=== PATIENT | female | born 1960 | race African-American/Black ===

== ENCOUNTER 2016-07-16 20:36 | Emergency (ER) | payer BC ==
--- NOTE | 2016-07-16 21:16 | ER Document Report ---
ED Medical Screen (RME) - General Chief Complaint: Chest Pain Stated Complaint: CHEST PAIN Time seen by provider: 21:13 Mode of Arrival: Wheelchair Information source: Patient Notes: 56 yo female presents to ed for chest tightness that started yesterday and got worse today. HX of mi in 2010 TRAVEL OUTSIDE OF THE [place] IN LAST 30 DAYS: No - HPI Onset: Yesterday Onset/Duration: Intermittent Quality of pain: Pressure, Sharp Severity: Severe Pain Level: 5 Associated Symptoms: Chest pain - left arm feels tired, Other - fatique Exacerbated by: Denies Relieved by: Denies Similar symptoms previously: Yes Recently seen / treated by doctor: No - Related Data Smoking: Non-smoker, Quit greater than 1 year Frequency of alcohol use: None Drug Abuse: None Allergies/Adverse Reactions: Penicillins Allergy (Unknown, Verified 07/16/16 21:04) Past Medical History - Social History Chew tobacco use (# tins/day): No Frequency of alcohol use: None Drug Abuse: None - Past Medical History Cardiac Medical History: Reports: Hx Coronary Artery Disease, Hx Heart Attack - 09/19/10, Hx Hypercholesterolemia, Hx Hypertension Pulmonary Medical History: Reports: Hx Asthma, Hx Bronchitis Psychiatric Medical History: Reports: Hx Depression Past Surgical History: Reports: Hx Cardiac Catheterization - stent x2, Hx Coronary Stent. Denies: Hx Pacemaker - Immunizations Immunizations up to date: Yes Hx Diphtheria, Pertussis, Tetanus Vaccination: Yes Physical Exam - Vital signs Vitals: Temp Pulse Resp BP Pulse Ox 97.9 F 64 20 121/74 95 07/16/16 20:49 07/16/16 20:49 07/16/16 20:49 07/16/16 20:49 07/16/16 20:49 Course - Vital Signs Vital signs: Temp Pulse Resp BP Pulse Ox 97.9 F 64 20 121/74 95 07/16/16 20:49 07/16/16 20:49 07/16/16 20:49 07/16/16 20:49 07/16/16 20:49
[2016-07-16] MEDS ORDERED: ASPIRIN 81 MG TABLET, CHEWABLE PO ONE (21:17)
[2016-07-16 22:12] LABS: ABSOLUTE BASOPHILS # (AUTO) 0.1 10^3/uL (0.0-0.2); ABSOLUTE EOSINOPHILS # (AUTO) 0.2 10^3/uL (0.0-0.6); ABSOLUTE LYMPHOCYTES (AUTO) 3.5 10^3/uL (0.5-4.7); ABSOLUTE MONOCYTES (AUTO) 0.8 10^3/uL (0.1-1.4); ABSOLUTE NEUT (AUTO) 3.4 10^3/uL (1.7-8.2); BASOPHILS % (AUTO) 1.1 % (0-2); EOSINOPHILS % (AUTO) 2.6 % (0-6); HEMATOCRIT 38.8 % (36.0-47.0); HGB HCT DIFFERENCE 0.2; LYMPHOCYTES % (AUTO) 44.3 % (13-45); MEAN CORPUSCULAR HEMOGLOBIN 29.9 pg (27.0-33.4); MEAN CORPUSCULAR HGB CONC 33.5 g/dL (32.0-36.0); MEAN CORPUSCULAR VOLUME 89 fl (80-97); MONOCYTES % (AUTO) 9.5 % (3-13); RED BLOOD COUNT 4.35 10^6/uL (3.72-5.28); RED CELL DISTRIBUTION WIDTH 13.4 % (11.5-14.0); SEGMENTED NEUTROPHILS % (AUTO) 42.5 % (42-78); WHITE BLOOD COUNT 7.9 10^3/uL (4.0-10.5)
[2016-07-16 22:33] LABS: ALANINE AMINOTRANSFERASE 46 U/L (9-52); ALBUMIN 3.7 g/dL (3.5-5.0); ALKALINE PHOSPHATASE 82 U/L (38-126); ANION GAP 12 (5-19); ASPARTATE AMINO TRANSFERASE 26 U/L (14-36); BILIRUBIN,TOTAL 0.8 mg/dL (0.2-1.3); BLOOD UREA NITROGEN 16 mg/dL (7-20); CALCIUM 9.5 mg/dL (8.4-10.2); CARBON DIOXIDE 24 mmol/L (22-30); CHLORIDE 106 mmol/L (98-107); CREATINE KINASE 95 U/L (30-135); CREATININE RESULT 1.03 mg/dL (0.52-1.25); GLUCOSE 138 mg/dL (75-110); LIPASE 40.9 U/L (23-300); MAGNESIUM 1.7 mg/dL (1.6-2.3); POTASSIUM 4.1 mmol/L (3.6-5.0); SODIUM 141.9 mmol/L (137-145); TOTAL PROTEIN 7.1 g/dL (6.3-8.2)
[2016-07-16 23:15] LABS: CREATINE KINASE MB 0.24 ng/mL (<4.55)
[2016-07-16 23:16] LABS: TROPONIN I < 0.012 ng/mL
[2016-07-17] MEDS ORDERED: ASPIRIN 81 MG TABLET, CHEWABLE ONE (01:15)
[2016-07-17] MEDS ORDERED: ASPIRIN 81 MG TABLET, CHEWABLE PO ONE (01:30)
--- NOTE | 2016-07-17 01:41 | ER Document Report ---
ED General - General Chief Complaint: Chest Pain Stated Complaint: CHEST PAIN Mode of Arrival: Wheelchair Notes: Patient is a 56-year-old female who presents with 2 days of continuous central chest pressure. Pain Is described as a dull, aching pain. Nothing improves or worsens the pain. She denies any associated shortness of breath, nausea, vomiting or diaphoresis. No radiation of the pain. States this does not feel the same as her prior [place] and at that time she had associated vomiting and diaphoresis. She has not spoken to her primary care physician regarding today' s concerns. No history of DVT or pulmonary embolus. TRAVEL OUTSIDE OF THE [place] IN LAST 30 DAYS: No - Related Data Allergies/Adverse Reactions: Penicillins Allergy (Unknown, Verified 07/16/16 21:04) Past Medical History - General Information source: Patient - Social History Smoking Status: Never Smoker Chew tobacco use (# tins/day): No Frequency of alcohol use: None Drug Abuse: None Lives with: Spouse/Significant other Family History: Reviewed & Not Pertinent, Hypertension Patient has suicidal ideation: No Patient has homicidal ideation: No - Past Medical History Cardiac Medical History: Reports: Hx Coronary Artery Disease, Hx Heart Attack - 09/19/10, Hx Hypercholesterolemia, Hx Hypertension Pulmonary Medical History: Reports: Hx Asthma, Hx Bronchitis Psychiatric Medical History: Reports: Hx Depression Past Surgical History: Reports: Hx Cardiac Catheterization - stent x2, Hx Coronary Stent. Denies: Hx Pacemaker - Immunizations Immunizations up to date: Yes Hx Diphtheria, Pertussis, Tetanus Vaccination: Yes Review of Systems - Review of Systems Notes: Constitutional: Negative for fever. HENT: Negative for sore throat. Eyes: Negative for visual changes. Cardiovascular: Positive for chest pain. Respiratory: Negative for shortness of breath. Gastrointestinal: Negative for abdominal pain, vomiting or diarrhea. Genitourinary: Negative for dysuria. Musculoskeletal: Negative for back pain. Skin: Negative for rash. Neurological: Negative for headaches, weakness or numbness. 10 point ROS negative except as marked above and in HPI. Physical Exam - Vital signs Vitals: Temp Pulse Resp BP Pulse Ox 97.9 F 64 20 121/74 95 07/16/16 20:49 07/16/16 20:49 07/16/16 20:49 07/16/16 20:49 07/16/16 20:49 Interpretation: Normal Notes: PHYSICAL EXAMINATION: GENERAL: Morbidly obese. Well-appearing, well-nourished and in no acute distress. HEAD: Atraumatic, normocephalic. EYES: Pupils equal round and reactive to light, extraocular movements intact, sclera anicteric, conjunctiva are normal. ENT: nares patent, oropharynx clear without exudates. Moist mucous membranes. NECK: Normal range of motion, supple without lymphadenopathy LUNGS: Breath sounds clear to auscultation bilaterally and equal. No wheezes rales or rhonchi. HEART: Regular rate and rhythm without murmurs ABDOMEN: Obese abdomen. Soft, nontender, normoactive bowel sounds. No guarding , no rebound. No masses appreciated. EXTREMITIES: Normal range of motion, trace edema in the bilateral lower extremities is equal and symmetric. No cyanosis. NEUROLOGICAL: No focal neurological deficits. Moves all extremities spontaneously and on command. PSYCH: Normal mood, normal affect. SKIN: Warm, Dry, normal turgor, no rashes or lesions noted. Course - Re-evaluation Re-evalutation: 07/17/16 0100 Presentation of chest pain in an otherwise well appearing patient. Low clinical suspicion for ACS given clinical history, exam, EKG without ST elevations or depressions, and negative initial troponin. HEART score less than or equal to 3. PE also seems unlikely given clinical history, absence of tachycardia or dyspnea. Wells score is 0 CXR without evidence of pneumothorax or pneumonia. No widened mediastinum. Aortic dissection also seems unlikely given history, symmetric pulses, CXR, and vitals. Patient does have some mild bilateral lower extremity edema and some of her discomfort may be related to a mild amount of fluid retention. She has been started on Lasix 20 mg daily. HEART Score: History:0 EC Age:1 Risk Factors:2 Troponin:0 Total: 3 0200- second troponin remains negative. Final assessment: Chest pain in a patient without evidence of cardiac or other serious etiology on workup today. I discussed with patient that, based on their age, risk factors and emergency department testing today, the likelihood that their symptoms are related to a heart attack is very low (estimated risk of heart attack or over the next 30 days of less than 1%). The patient demonstrates decision making capacity and has verbalized an understanding of these risks to me. Based on this, the patient has chosen to follow-up as an outpatient. Usual chest pain return precautions reviewed. The patient states understanding and agreement with this plan. - Vital Signs Vital signs: Temp Pulse Resp BP Pulse Ox 97.9 F 64 15 136/77 H 97 07/16/16 20:49 07/16/16 20:49 07/17/16 01:02 07/17/16 01:02 07/17/16 01:02 - Laboratory Result Diagrams: 07/16/16 21:45 07/16/16 21:45 Laboratory results interpreted by me: 07/16/16 21:45 Est GFR (Non-Af Amer) 56 L Glucose 138 H - Diagnostic Test Radiology reviewed: Image reviewed, Reports reviewed Radiology results interpreted by me: 07/17/16 04:25 Chest x-ray: No acute infiltrate or pulmonary edema. - EKG Interpretation by Me Additional EKG results interpreted by me: 07/17/16 04:26 Normal sinus rhythm. Rate 65. No ST elevations or depressions. QTC is 423. Discharge - Discharge Clinical Impression: Bilateral lower extremity edema Chest pain Qualifiers: Chest pain type: unspecified Qualified Code(s): R07.9 - Chest pain, unspecified Condition: Good Disposition: HOME, SELF-CARE Additional Instructions: You were seen today for chest pain. The exact cause of your pain is unclear. However, based on your cardiac enzyme testing, chest x-ray, and EKG it does not appear that it is from an immediately life-threatening cause at this time. Although your testing here is normal is critical that you follow-up with your primary care physician for continued evaluation of this chest pain and possible stress testing. I recommended you see your physician within the next 24-48 hours to be evaluated for consideration of a stress test. Please return to emergency department immediately if you have worsening of your chest pain, shortness of breath, vomiting, become unable to exert yourself due to pain or difficulty breathing, you pass out, or have any pain that radiates into your arms, jaw, or back. Please also return if you have any additional symptoms that are concerning to you. For the swelling in her legs: You've been started on a low-dose of Lasix and should continue until you see your primary care doctor. Prescriptions: Furosemide [Lasix 20 mg Tablet] 20 mg PO QAM #20 tablet Tramadol HCl 50 mg PO BID PRN #20 tablet PRN Reason: Referrals: [Primary Care Provider] - Follow up in 3-5 days
[2016-07-17 01:44] VITALS: BP 136/77
--- NOTE | 2016-07-17 05:12 | EKG REPORT ---
SEVERITY:- BORDERLINE ECG - SINUS RHYTHM BORDERLINE T ABNORMALITIES, ANTERIOR LEADS : Confirmed by: Alyse Thompson 17-Jul-2016 05:11:16
== END 2016-07-17 02:14 | disposition home or self-care (01) ==
LOC: ER 20:36
DX: R60.9 Edema, unspecified (principal); R07.9 Chest pain, unspecified; I25.10 Atherosclerotic heart disease of native coronary artery without angina pectoris; I10 Essential (primary) hypertension; E78.00 Pure hypercholesterolemia, unspecified; J45.909 Unspecified asthma, uncomplicated; I25.2 Old myocardial infarction; Z88.0 Allergy status to penicillin
CPT/HCPCS: 36415; 71020; 80053; 82550; 82553; 83690; 83735; 84484; 84703; 85025; 93005; 93010; 99285

== ENCOUNTER 2016-08-28 20:42 | Emergency (ER) | payer BC ==
--- NOTE | 2016-08-28 22:07 | ER Document Report ---
ED Medical Screen (RME) - General Chief Complaint: Medication Refill Stated Complaint: BLOOD PRESSURE PROBLEM Mode of Arrival: Ambulatory Information source: Patient Notes: 56 y/o F presents to ED requesting medication refill of Tramadol and Lasix. States was prescribed medication in ED last month but has not been able to follow-up with pcp. I have greeted and performed a rapid initial assessment of this patient. A comprehensive ED assessment and evaluation of the patient, analysis of test results and completion of the medical decision making process will be conducted by additional ED providers. TRAVEL OUTSIDE OF THE [place] IN LAST 30 DAYS: No - Related Data Allergies/Adverse Reactions: Penicillins Allergy (Unknown, Verified 07/16/16 21:04) Past Medical History - Past Medical History Cardiac Medical History: Reports: Hx Coronary Artery Disease, Hx Heart Attack - 09/19/10, Hx Hypercholesterolemia, Hx Hypertension Pulmonary Medical History: Reports: Hx Asthma, Hx Bronchitis Endocrine Medical History: Reports: Hx Diabetes Mellitus Type 2 Psychiatric Medical History: Reports: Hx Depression Past Surgical History: Reports: Hx Cardiac Catheterization - stent x2, Hx Coronary Stent. Denies: Hx Pacemaker - Immunizations Immunizations up to date: Yes Hx Diphtheria, Pertussis, Tetanus Vaccination: Yes Physical Exam - Vital signs Vitals: Temp Pulse Resp BP Pulse Ox 97.9 F 71 20 119/70 95 08/28/16 21:33 08/28/16 21:33 08/28/16 21:33 08/28/16 21:33 08/28/16 21:33 - General General appearance: Appears well, Alert In distress: None - Respiratory Respiratory status: No respiratory distress Course - Vital Signs Vital signs: Temp Pulse Resp BP Pulse Ox 97.9 F 71 20 119/70 95 08/28/16 21:33 08/28/16 21:33 08/28/16 21:33 08/28/16 21:33 08/28/16 21:33
--- NOTE | 2016-08-29 01:45 | ER Document Report ---
HPI - HPI Onset: Other - Chronic Onset/Duration: Intermittent Quality of pain: Sharp Pain Level: 3 Context: Patient states she has blood pressure problems and she needs a refill on her portable pill until she can follow-up with [facility] on [facility]. She states she's been taken 20 mg of Lasix daily. She states she also needs some tramadol until she can follow-up as she is out of those. She states she has pain from neuropathy and from the swelling to her hands and feet. Associated Symptoms: Other - Swelling to hands and feet and pain in hands and feet Exacerbated by: Movement, Walking Relieved by: Denies Similar symptoms previously: Yes Recently seen / treated by doctor: Yes - ROS ROS below otherwise negative: Yes - CONSTITUTIONAL Constitutional: DENIES: Fever, Chills - EENT EENT: DENIES: Sore Throat, Ear Pain, Nasal Drainage-Clear, Nasal Drainage- Purulent, Congestion, Eye problems - NEURO Neurology: DENIES: Headache, Weakness, Vision blurred, Dizzinesss / Vertigo - CARDIOVASCULAR Cardiovascular: DENIES: Chest pain - RESPIRATORY Respiratory: DENIES: Trouble Breathing, Coughing - GASTROINTESTINAL Gastrointestinal: DENIES: Abdominal Pain, Nausea, Patient vomiting, Diarrhea, Constipation, Black / Bloody Stools - URINARY Urinary: DENIES: Dysuria, Urgency, Frequency - REPRODUCTIVE Reproductive: DENIES: :, Postmenopausal, Abnormal bleeding / discharge - MUSCULOSKELETAL Musculoskeletal: REPORTS: Extremity pain, Swelling. DENIES: Back Pain, Neck Pain - DERM Skin Color: Normal Skin Problems: None - NURSING COMMENTS Comment: 56 yr old female here for JESS leg swelling. Pt has hx of CHF, pt prescribed Lasix here as well as tramdol. Pt states she needs a refill. Pt denies pain. Pt allergic to PCN. HX HTN, CHF and diabetes Past Medical History - General Information source: Patient - Social History Smoking Status: Never Smoker Cigarette use (# per day): No Chew tobacco use (# tins/day): No Smoking Education Provided: No Frequency of alcohol use: None Drug Abuse: None Occupation: none Family History: Arthritis, CAD, COPD, CVA, DM, Hyperlipidemia, Hypertension, Malignancy Patient has suicidal ideation: No Patient has homicidal ideation: No - Past Medical History Cardiac Medical History: Reports: Hx Coronary Artery Disease, Hx Heart Attack - 09/19/10, Hx Hypercholesterolemia, Hx Hypertension Pulmonary Medical History: Reports: Hx Asthma, Hx Bronchitis EENT Medical History: Reports: None Neurological Medical History: Reports: None Endocrine Medical History: Reports: Hx Diabetes Mellitus Type 2 Renal/ Medical History: Reports: None Malignancy Medical History: Reports: None GI Medical History: Reports: None Musculoskeltal Medical History: Reports None Skin Medical History: Reports Hx Cellulitis Psychiatric Medical History: Reports: Hx Depression Traumatic Medical History: Reports: None Infectious Medical History: Reports: None Past Surgical History: Reports: Hx Cardiac Catheterization - stent x2, Hx Coronary Stent, Hx Gynecologic Surgery - Exploratory laparoscopy for pain, Other - Lymph nodes removed from left and right arm as well as sweat glands. Denies: Hx Pacemaker - Immunizations Immunizations up to date: Yes Hx Diphtheria, Pertussis, Tetanus Vaccination: Yes Vertical Provider Document - CONSTITUTIONAL Agree With Documented VS: Yes General Appearance: WD/WN, No Apparent Distress - INFECTION CONTROL TRAVEL OUTSIDE OF THE [place] IN LAST 30 DAYS: No - HEENT HEENT: Atraumatic, Normal ENT Exam, Normocephalic, PERRLA - NECK Neck: Normal Inspection, Supple, Thyroid Normal - RESPIRATORY Respiratory: Breath Sounds Normal, No Respiratory Distress, Chest Non-Tender O2 Sat by Pulse Oximetry: 93 - CARDIOVASCULAR Cardiovascular: Regular Rate, Regular Rhythm, No Murmur - BACK Back: Normal Inspection, Abnormal Inspection - MUSCULOSKELETAL/EXTREMETIES Musculoskeletal/Extremeties: Tender, Edema - Bilateral feet and hands - NEURO Level of Consciousness: Awake Motor/Sensory: No Motor Deficit, No Sensory Deficit - DERM Integumentary: Warm, Dry, No Rash Course - Re-evaluation Re-evalutation: 08/29/16 01:45 We'll write prescription for 7 of the tramadol and 10 mg Lasix daily to last until her follow-up appointment with [facility] on 09/21/2016. - Vital Signs Vital signs: Temp Pulse Resp BP Pulse Ox 97.9 F 71 20 119/70 93 08/28/16 22:03 08/28/16 22:03 08/28/16 22:03 08/28/16 22:03 08/28/16 22:03 Discharge - Discharge Clinical Impression: Peripheral edema Hand and foot pain Qualifiers: Laterality: unspecified laterality Qualified Code(s): M79.643 - Pain in unspecified hand Disposition: HOME, SELF-CARE Additional Instructions: Edema, Peripheral You have swelling in your legs. This is called peripheral edema. It can be caused by "leaky capillaries," inflammation, disease of the leg veins, or excess salt and water in your body. Edema may be a sign of heart, kidney, or liver disease. A medical evaluation can determine if there is a serious underlying cause for your edema. Avoid prolonged standing. If you must sit for a long time, occasionally get up and walk around or elevate your legs. Support stockings can be helpful in limiting swelling. Often diuretic or water pills are used to remove excess salt and water from your body. Call the doctor or return if you develop increased swelling, pain, or redness, shortness of breath, chest pain, or any other significant change. Ultram Ultram is an excellent drug for pain relief. It is not a narcotic, but it works in a similar way. Ultram can take up to two hours for full effect. Although not addicting, Ultram is best avoided in patients with a history of drug abuse. Ultram should not be used with alcohol, sleeping pills, or narcotics. If you're prone to seizures, Ultram can make you more likely to have a seizure. Ultram can be hazardous when combined with MAO-inhibitor antidepressants (such as Nardil or Parnate). Be sure your doctor is aware of all medicines you are taking. Persons with severe liver or kidney disease should increase the time between doses of Ultram. Discuss this with your doctor if you're uncertain. Side effects of Ultram can include dizziness, nausea, constipation, sleepiness, and itching. (These side effects are also seen with narcotic pain medicines.) Please call your doctor if you have other disturbing effects. FOLLOW-UP CARE: If you have been referred to a physician for follow-up care, call the physician s office for an appointment as you were instructed or within the next two days. If you experience worsening or a significant change in your symptoms, notify the physician immediately or return to the Emergency Department at any time for re-evaluation. Be sure to keep your follow-up appointment on 09/21/2016 Prescriptions: Furosemide 10 mg PO DAILY #15 tablet Tramadol HCl [Ultram 50 mg Tablet] 50 mg PO BIDP PRN #10 tablet PRN Reason: Referrals: [facility] [Primary Care Provider] - Follow up as needed
[2016-08-29 02:00] VITALS: BP 130/88
== END 2016-08-29 01:54 | disposition home or self-care (01) ==
LOC: ER 20:42
DX: Z76.0 Encounter for issue of repeat prescription (principal); E11.40 Type 2 diabetes mellitus with diabetic neuropathy, unspecified; I11.0 Hypertensive heart disease with heart failure; I50.9 Heart failure, unspecified; R60.9 Edema, unspecified; I25.10 Atherosclerotic heart disease of native coronary artery without angina pectoris; I25.2 Old myocardial infarction; J45.909 Unspecified asthma, uncomplicated; Z79.899 Other long term (current) drug therapy; Z88.0 Allergy status to penicillin; Z98.61 Coronary angioplasty status
CPT/HCPCS: 99283

== ENCOUNTER 2017-01-17 14:58 | Emergency (ER) | payer BC, MEDICAID ==
[2017-01-17] MEDS ORDERED: METHYLPREDNISOLONE INJ 125 MG/2 ML SDV IV ONE (16:10)
[2017-01-17] MEDS ORDERED: DIPHENHYDRAMINE HCL 50 MG/ML VIAL IV ONE (16:10)
[2017-01-17] MEDS ORDERED: FAMOTIDINE INJ/PF 20 MG/2 ML SDV IV ONE (16:10)
--- NOTE | 2017-01-17 16:12 | ER Document Report ---
HPI - HPI Patient complains to provider of: allergic reaction Onset: Just prior to arrival Onset/Duration: Sudden Quality of pain: Achy Pain Level: 4 Context: Patient states that she ate at [employer] lunchtime today and had several bites of her sandwich before she realized that there had been onions on the burger. Patient states that her voice became hoarse and she noticed a rash to her extremities. Patient states she has had allergic reaction to onions in the past. Patient states initially she felt like her throat was starting to become irritated although she states that her throat started to feel better now. Additionally complains of left lower back pain that started after she ate a hamburger as well and is concerned that her allergic reaction is causing left lower back pain. Patient denies any injury to her back. Patient denies any urinary symptoms. Associated Symptoms: Other - voice hoarseness, skin rash, left lower back pain. denies: Chest pain, Nonproductive cough, Productive cough, Fever, Shortness of breath Exacerbated by: Denies Relieved by: Denies Similar symptoms previously: Yes Recently seen / treated by doctor: No - ROS ROS below otherwise negative: Yes Systems Reviewed and Negative: Yes All other systems reviewed and negative - CONSTITUTIONAL Constitutional: DENIES: Fever - EENT EENT: DENIES: Sore Throat Notes: voice hoarseness - RESPIRATORY Respiratory: DENIES: Trouble Breathing, Coughing - GASTROINTESTINAL Gastrointestinal: DENIES: Nausea, Patient vomiting - URINARY Urinary: DENIES: Dysuria, Urgency, Frequency - REPRODUCTIVE Reproductive: DENIES: : - MUSCULOSKELETAL Musculoskeletal: REPORTS: Back Pain - DERM Skin Color: Normal Skin Problems: Rash Past Medical History - General Information source: Patient - Social History Smoking Status: Never Smoker Frequency of alcohol use: None Drug Abuse: None Occupation: [employer] Family History: Arthritis, CAD, COPD, CVA, DM, Hyperlipidemia, Hypertension, Malignancy Patient has suicidal ideation: No Patient has homicidal ideation: No - Past Medical History Cardiac Medical History: Reports: Hx Congestive Heart Failure, Hx Coronary Artery Disease, Hx Heart Attack - 09/19/10, Hx Hypercholesterolemia, Hx Hypertension Pulmonary Medical History: Reports: Hx Asthma, Hx Bronchitis Endocrine Medical History: Reports: Hx Diabetes Mellitus Type 2 Renal/ Medical History: Denies: Hx Peritoneal Dialysis Skin Medical History: Reports Hx Cellulitis Psychiatric Medical History: Reports: Hx Depression Past Surgical History: Reports: Hx Cardiac Catheterization - stent x2, Hx Coronary Stent, Hx Gynecologic Surgery - Exploratory laparoscopy for pain, Other - Lymph nodes removed from left and right arm as well as sweat glands. Denies: Hx Pacemaker - Immunizations Immunizations up to date: Yes Hx Diphtheria, Pertussis, Tetanus Vaccination: Yes Vertical Provider Document - CONSTITUTIONAL Agree With Documented VS: Yes Exam Limitations: No Limitations General Appearance: WD/WN, No Apparent Distress - INFECTION CONTROL TRAVEL OUTSIDE OF THE [place] IN LAST 30 DAYS: No - HEENT HEENT: Atraumatic, Normocephalic. negative: Pharyngeal Exudate, Pharyngeal Tenderness, Pharyngeal Erythema, Tympanic Membrane Red, Tympanic Membrane Bulging Notes: voice hoarseness, no angioedema, no potential airway compromise - NECK Neck: Normal Inspection, Supple. negative: Lymphadenopathy-Left, Lymphadenopathy-Right - RESPIRATORY Respiratory: Breath Sounds Normal, No Respiratory Distress, Chest Non-Tender O2 Sat by Pulse Oximetry: 94 - CARDIOVASCULAR Cardiovascular: Regular Rate, Regular Rhythm, No Murmur - GI/ABDOMEN Gastrointestinal: Abdomen Soft - BACK Back: negative: CVA Tenderness-Right, CVA Tenderness-Left Notes: left lower lumbar paraspinal tenderness - MUSCULOSKELETAL/EXTREMETIES Musculoskeletal/Extremeties: MAEW, FROM - NEURO Level of Consciousness: Awake, Alert, Appropriate Motor/Sensory: No Motor Deficit - DERM Integumentary: Warm, Dry, Rash - a few scattered erythematous macular lesions to bilateral extremities Course - Re-evaluation Re-evalutation: 01/17/17 17:53 Breath sounds clear bilaterally, no angioedema, no visible rash to extremities. Patient denies any symptoms at this time. Discussed worsening signs or symptoms that patient should return immediately for. Patient verbalized understanding and agrees with plan of care - Vital Signs Vital signs: Temp Pulse Resp BP Pulse Ox 97.4 F 61 22 H 121/67 94 01/17/17 15:26 01/17/17 15:26 01/17/17 15:26 01/17/17 15:26 01/17/17 15:26 Discharge - Discharge Clinical Impression: Allergic reaction Qualifiers: Encounter type: initial encounter Qualified Code(s): T78.40XA - Allergy, unspecified, initial encounter Condition: Stable Disposition: HOME, SELF-CARE Instructions: Acute Allergic Reaction ([facility]), Use of Diphenhydramine, Steroid Medication Additional Instructions: Return immediately for any new or worsening symptoms Followup with your primary care provider, call tomorrow to make a followup appointment Prescriptions: Famotidine [Pepcid 20 mg Tablet] 20 mg PO BID #12 tablet Prednisone [Deltasone 20 mg Tablet] 3 tab PO DAILY 4 Days Forms: Return to Work Referrals: SAVANNA ADAMS MD [NO LOCAL MD] - Follow up as needed
[2017-01-17 17:16] LABS: APPEARANCE,URINE CLEAR; BILIRUBIN,URINE NEGATIVE (NEGATIVE); GLUCOSE, URINE NEGATIVE (NEGATIVE); KETONES,URINE NEGATIVE (NEGATIVE); LEUKOCYTE ESTERASE,URINE SMALL (NEGATIVE); NITRITE,URINE NEGATIVE (NEGATIVE); PROTEIN,URINE NEGATIVE (NEGATIVE); URINE SPECIFIC GRAVITY 1.008; UROBILINOGEN,URINE NEGATIVE mg/dL (<2.0)
[2017-01-17 18:29] VITALS: BP 132/79
== END 2017-01-17 18:28 | disposition home or self-care (01) ==
LOC: ER 14:58
DX: T78.1XXA Other adverse food reactions, not elsewhere classified, initial encounter (principal); R49.0 Dysphonia; L27.2 Dermatitis due to ingested food; X58.XXXA Exposure to other specified factors, initial encounter; M54.5 Low back pain; I25.10 Atherosclerotic heart disease of native coronary artery without angina pectoris; I25.2 Old myocardial infarction; I10 Essential (primary) hypertension; E11.9 Type 2 diabetes mellitus without complications; J45.909 Unspecified asthma, uncomplicated; Z98.61 Coronary angioplasty status
CPT/HCPCS: 99283; 96374; 96375; 87086; 81001; J1200; J2930; S0028

== ENCOUNTER → 2018-05-03 | Outpatient (CLI) | payer MEDICAID ==
--- NOTE | 2018-05-04 14:35 | WOMENS IMAGING REPORT ---
EXAM DESCRIPTION: BILAT SCREENING MAMMO W/CAD COMPLETED DATE/TIME: 05/03/2018 2:55 pm REASON FOR STUDY: SCREENING MAMMO Z12.31 ENCNTR SCREEN MAMMOGRAM FOR MALIGNANT NEOPLASM OF LOW COMPARISON: 2013 TECHNIQUE: Standard craniocaudal and mediolateral oblique views of each breast recorded using digita l acquisition. LIMITATIONS: None. FINDINGS: No masses, calcifications or architectural distortion. No areas of suspicion. Read with the assistance of CAD. .[facility] - R2 Cenova Version 1.3 .[facility] Imaging - R2 Cenova Version 1.3 .[facility] - R2 Cenova Version 2.4 .[facility] [place] Cenova Version 2.4 .[facility] - R2 Database Tester Version 9.2 IMPRESSION: NORMAL MAMMOGRAM. BIRADS 1. BREAST DENSITY: b. There are scattered areas of fibroglandular density. BIRAD: 1 NEGATIVE RECOMMENDATION: ROUTINE SCREENING COMMENT: The patient has been notified of the results by letter per SA requirements. Additional no tification policies are in place for contacting patient with suspicious or incomplete findings. Quality ID #[id number]: The [employer] recommends an annual screening mammogram for women aged 40 years or over. This facility utilizes a reminder system to ensure that all patients receive reminder letters, and/or direct phone calls for appointments. This includes reminders for routine scr eening mammograms, diagnostic mammograms, or other Breast Imaging Interventions when appropriate. Th is patient will be placed in the appropriate reminder system. The [employer] ([employer]) has developed recommendations for screening MRI of the breast s in certain patient populations, to be used in conjunction with mammography. Breast MRI surveillanc e may be appropriate for women with more than 20% lifetime risk of developing breast cancer as deter mined by genetic testing, significant family history of the disease, or history of mantle radiation f or Hodgkins Disease. [employer] Practice Guidelines 2008. TECHNICAL DOCUMENTATION: FINDING NUMBER: (1) ASSESSMENT: (1) JOB ID: [id number] [employer]- All Rights Reserved Reading location - IP/workstation name: [email or web address]
== END ==
LOC: WI 14:27
PROVIDERS: ATTEND Internal Medicine
DX: Z12.31 Encounter for screening mammogram for malignant neoplasm of breast (principal)
CPT/HCPCS: 77067

== ENCOUNTER 2018-06-10 13:25 | Emergency (ER) | payer MEDICAID ==
[2018-06-10] MEDS ORDERED: ASPIRIN 81 MG TABLET, CHEWABLE PO ONE (14:35)
[2018-06-10] MEDS ORDERED: NITROGLYCERIN 2% OINTMENT 1 GM PACKET TP ONE (14:36)
--- NOTE | 2018-06-10 14:36 | ER Document Report ---
ED Medical Screen (RME) - General Chief Complaint: Chest Pain Stated Complaint: SHORTNESS OF BREATH,CHEST PAIN Time Seen by Provider: 06/10/18 14:34 Notes: 58 years old female with a history of [place] in 2014 followed by 3 stent placement presents today with chest pain which was similar to the one that she had in 2014. Pointing towards the mid sternum to lower sternum area and spreading bilaterally since this morning. Associated with difficulty in breathing. Nauseous no vomiting. Denies any left arm numbness tingling sensation. Denies any fever chills cough or other constitutional symptoms. TRAVEL OUTSIDE OF THE [place] IN LAST 30 DAYS: No - Related Data Allergies/Adverse Reactions: Penicillins Allergy (Unknown, Verified 06/10/18 13:25) Past Medical History - Social History Chew tobacco use (# tins/day): No Frequency of alcohol use: None Drug Abuse: None - Past Medical History Cardiac Medical History: Reports: Hx Congestive Heart Failure, Hx Coronary Artery Disease, Hx Heart Attack - 09/19/10, Hx Hypercholesterolemia, Hx Hypertension Pulmonary Medical History: Reports: Hx Asthma, Hx Bronchitis Endocrine Medical History: Reports: Hx Diabetes Mellitus Type 2 Renal/ Medical History: Denies: Hx Peritoneal Dialysis Skin Medical History: Reports Hx Cellulitis Psychiatric Medical History: Reports: Hx Depression Past Surgical History: Reports: Hx Cardiac Catheterization - stent x2, Hx Coronary Stent, Hx Gynecologic Surgery - Exploratory laparoscopy for pain, Other - Lymph nodes removed from left and right arm as well as sweat glands. Denies: Hx Pacemaker - Immunizations Immunizations up to date: Yes Hx Diphtheria, Pertussis, Tetanus Vaccination: Yes Physical Exam - Vital signs Vitals: Temp Pulse Resp BP Pulse Ox 97.4 F 81 20 108/67 99 06/10/18 13:33 06/10/18 13:33 06/10/18 13:33 06/10/18 13:33 06/10/18 13:33 Course - Vital Signs Vital signs: Temp Pulse Resp BP Pulse Ox 97.4 F 81 20 108/67 99 06/10/18 13:33 06/10/18 13:33 06/10/18 13:33 06/10/18 13:33 06/10/18 13:33 Doctor's Discharge - Discharge Referrals: KIKA AGUILAR MD [Primary Care Provider] - Follow up as needed
[2018-06-10 15:15] LABS: ABSOLUTE BASOPHILS # (AUTO) 0.1 10^3/uL (0.0-0.2); ABSOLUTE EOSINOPHILS # (AUTO) 0.1 10^3/uL (0.0-0.6); ABSOLUTE LYMPHOCYTES (AUTO) 4.9 10^3/uL (0.5-4.7); ABSOLUTE MONOCYTES (AUTO) 1.1 10^3/uL (0.1-1.4); ABSOLUTE NEUT (AUTO) 5.2 10^3/uL (1.7-8.2); BASOPHILS % (AUTO) 1.2 % (0-2); HEMATOCRIT 44.1 % (36.0-47.0); HEMOGLOBIN 15.1 g/dL (12.0-15.5); LYMPHOCYTES % (AUTO) 42.7 % (13-45); MEAN CORPUSCULAR HEMOGLOBIN 31.8 pg (27.0-33.4); MEAN CORPUSCULAR HGB CONC 34.3 g/dL (32.0-36.0); MEAN CORPUSCULAR VOLUME 93 fl (80-97); MONOCYTES % (AUTO) 9.7 % (3-13); PLATELET COUNT 407 10^3/uL (150-450); RED BLOOD COUNT 4.76 10^6/uL (3.72-5.28); RED CELL DISTRIBUTION WIDTH 14.3 % (11.5-14.0); SEGMENTED NEUTROPHILS % (AUTO) 45.4 % (42-78); TOTAL CELLS COUNTED % (AUTO) 100 %; WHITE BLOOD COUNT 11.4 10^3/uL (4.0-10.5)
[2018-06-10 15:36] LABS: ALANINE AMINOTRANSFERASE 28 U/L (9-52); ALBUMIN 3.8 g/dL (3.5-5.0); ALKALINE PHOSPHATASE 102 U/L (38-126); ANION GAP 10 (5-19); ASPARTATE AMINO TRANSFERASE 19 U/L (14-36); BILIRUBIN,DIRECT 0.3 mg/dL (0.0-0.4); BILIRUBIN,TOTAL 0.7 mg/dL (0.2-1.3); BLOOD UREA NITROGEN 19 mg/dL (7-20); CALCIUM 10.2 mg/dL (8.4-10.2); CARBON DIOXIDE 32 mmol/L (22-30); CHLORIDE 101 mmol/L (98-107); CREATINE KINASE 52 U/L (30-135); GLUCOSE 114 mg/dL (75-110); TOTAL PROTEIN 7.8 g/dL (6.3-8.2)
--- NOTE | 2018-06-10 15:36 | RADIOLOGY REPORT (SQ) ---
EXAM DESCRIPTION: CHEST SINGLE VIEW COMPLETED DATE/TIME: 06/10/2018 3:27 pm REASON FOR STUDY: Chest pain COMPARISON: Chest films 07/16/2016, 02/12/2015 EXAM PARAMETERS: NUMBER OF VIEWS: One view. TECHNIQUE: Single frontal radiographic view of the chest acquired. RADIATION DOSE: NA LIMITATIONS: None. FINDINGS: LUNGS AND PLEURA: No opacities, masses or pneumothorax. No pleural effusion. MEDIASTINUM AND HILAR STRUCTURES: No masses. Contour normal. HEART AND VASCULAR STRUCTURES: Heart normal in size. Normal vasculature. BONES: No acute findings. HARDWARE: None in the chest. OTHER: No other significant finding. IMPRESSION: NO ACUTE RADIOGRAPHIC FINDING IN THE CHEST. TECHNICAL DOCUMENTATION: JOB ID: [id number] [employer]- All Rights Reserved Reading location - IP/workstation name: [email or web address]
[2018-06-10 15:48] LABS: CREATINE KINASE MB 0.42 ng/mL (<4.55)
[2018-06-10 15:49] LABS: TROPONIN I < 0.012 ng/mL
--- NOTE | 2018-06-10 19:49 | EKG REPORT ---
SEVERITY:- BORDERLINE ECG - SINUS RHYTHM BORDERLINE T WAVE ABNORMALITIES : Confirmed by: Adonis Cervantes MD 10-Jun-2018 19:48:25
[2018-06-10] MEDS ORDERED: KETOROLAC TROMETHAMINE INJ/PF 30 MG/1 ML SDV IV ONE (20:52)
[2018-06-10] MEDS ORDERED: LIDOCAINE 5% (700 MG) TRANSDERMAL ADH..PATCH TP ONE (20:52)
--- NOTE | 2018-06-10 20:56 | ER Document Report ---
ED General - General Chief Complaint: Chest Pain Stated Complaint: SHORTNESS OF BREATH,CHEST PAIN Time Seen by Provider: 06/10/18 14:34 Notes: Patient is a 58-year-old patient with a past medical history of hypertension, diabetes, coronary artery disease, prior history of AR who presents with complaints of 24 hours of chest discomfort when she is bending over or when she goes from a sitting to standing position. She states that she feels like when her chest pulls forward if she develops chest discomfort. She states that she was working moving heavy boxes all day yesterday, did not have any discomfort at that time but when she woke up she noticed the discomfort. It is described as a diffuse stabbing, aching pain across the entirety of her chest wall. She has not tried anything for improvement. Contrary to the triage assessment note , the patient is very clear states that this does not feel like when she had an AR in 2013. The patient denies any associated diaphoresis, nausea or vomiting. She states that when the pain is present it does almost take her breath away it is so severe. She has not seen her primary doctor regarding today's concerns. She denies any pleuritic pain. No history of DVT or pulmonary embolus. She denies any current pain or shortness of breath when lying in the bed. TRAVEL OUTSIDE OF THE [place] IN LAST 30 DAYS: No - Related Data Allergies/Adverse Reactions: Penicillins Allergy (Unknown, Verified 06/10/18 13:25) Past Medical History - General Information source: Patient - Social History Smoking Status: Former Smoker Chew tobacco use (# tins/day): No Frequency of alcohol use: None Drug Abuse: None Lives with: Spouse/Significant other Family History: Arthritis, CAD, COPD, CVA, DM, Hyperlipidemia, Hypertension, Malignancy Patient has suicidal ideation: No Patient has homicidal ideation: No - Past Medical History Cardiac Medical History: Reports: Hx Congestive Heart Failure, Hx Coronary Artery Disease, Hx Heart Attack - 09/19/10, Hx Hypercholesterolemia, Hx Hypertension Pulmonary Medical History: Reports: Hx Asthma, Hx Bronchitis Endocrine Medical History: Reports: Hx Diabetes Mellitus Type 2 Renal/ Medical History: Denies: Hx Peritoneal Dialysis Skin Medical History: Reports Hx Cellulitis Psychiatric Medical History: Reports: Hx Depression Past Surgical History: Reports: Hx Cardiac Catheterization - stent x2, Hx Coronary Stent, Hx Gynecologic Surgery - Exploratory laparoscopy for pain, Other - Lymph nodes removed from left and right arm as well as sweat glands. Denies: Hx Pacemaker - Immunizations Immunizations up to date: Yes Hx Diphtheria, Pertussis, Tetanus Vaccination: Yes Review of Systems - Review of Systems Notes: Constitutional: Negative for fever. HENT: Negative for sore throat. Eyes: Negative for visual changes. Cardiovascular: Positive for chest pain. Respiratory: Positive for shortness of breath. Gastrointestinal: Negative for abdominal pain, vomiting or diarrhea. Genitourinary: Negative for dysuria. Musculoskeletal: Negative for back pain. Skin: Negative for rash. Neurological: Negative for headaches, weakness or numbness. 10 point ROS negative except as marked above and in HPI. Physical Exam - Vital signs Vitals: Temp Pulse Resp BP Pulse Ox 97.4 F 81 20 108/67 99 06/10/18 13:33 06/10/18 13:33 06/10/18 13:33 06/10/18 13:33 06/10/18 13:33 Interpretation: Normal Notes: PHYSICAL EXAMINATION: GENERAL: Well-appearing, well-nourished and in no acute distress. HEAD: Atraumatic, normocephalic. EYES: Pupils equal round and reactive to light, extraocular movements intact, sclera anicteric, conjunctiva are normal. ENT: nares patent, oropharynx clear without exudates. Moist mucous membranes. NECK: Normal range of motion, supple without lymphadenopathy LUNGS: Breath sounds clear to auscultation bilaterally and equal. No wheezes rales or rhonchi. HEART: Regular rate and rhythm without murmurs ABDOMEN: Soft, nontender, normoactive bowel sounds. No guarding, no rebound. No masses appreciated. EXTREMITIES: Normal range of motion, no pitting or edema. No cyanosis. NEUROLOGICAL: No focal neurological deficits. Moves all extremities spontaneously and on command. PSYCH: Normal mood, normal affect. SKIN: Warm, Dry, normal turgor, no rashes or lesions noted. Course - Re-evaluation Re-evalutation: 06/10/18 20:52 Presentation of chest pain in an otherwise well appearing patient. Low clinical suspicion for ACS given clinical history, exam, EKG without ST elevations or depressions, and negative initial troponin. HEART score less than or equal to 3. PE also seems unlikely given clinical history, absence of tachycardia or dyspnea. Patient is PERC criteria negative. CXR without evidence of pneumothorax or pneumonia. No widened mediastinum. Aortic dissection also seems unlikely given history, symmetric pulses, CXR, and vitals. Chest pain is reproducible when patient goes from a lying to sitting up position or when she bends over. It appears that when her breasts pull against her chest wall she does have reproduction of her pain and that this has been consistent with her pain pattern throughout the day today. Delta troponin is likewise negative. Pain appears very musculoskeletal in origin although I have advised the patient that she should still follow-up as previously directed. HEART Score: History0 ECG0 patient's Age1 Risk Factors2 Troponin0 Total: 3 Chest pain in a patient without evidence of cardiac or other serious etiology on workup today. I discussed with patient that, based on their age, risk factors and emergency department testing today, the likelihood that their symptoms are related to a heart attack is very low (estimated risk of heart attack or over the next 30 days of less than 1%). The patient demonstrates decision making capacity and has verbalized an understanding of these risks to me. Based on this, the patient has chosen to follow-up as an outpatient. Usual chest pain return precautions reviewed. The patient states understanding and agreement with this plan. - Vital Signs Vital signs: Temp Pulse Resp BP Pulse Ox 97.9 F 81 23 H 80/58 L 99 06/10/18 19:01 06/10/18 13:33 06/10/18 21:02 06/10/18 21:02 06/10/18 21:01 - Laboratory Result Diagrams: 06/10/18 14:58 06/10/18 14:58 Laboratory results interpreted by me: 06/10/18 06/10/18 14:58 14:58 WBC 11.4 H RDW 14.3 H Absolute Lymphocytes 4.9 H Carbon Dioxide 32 H Est GFR (Non-Af Amer) 50 L Glucose 114 H - Diagnostic Test Radiology reviewed: Image reviewed, Reports reviewed Radiology results interpreted by me: 06/10/18 20:53 Chest x-ray: No acute infiltrate or pneumothorax - EKG Interpretation by Me Additional EKG results interpreted by me: 06/10/18 20:53 Sinus rhythm. Rate 84. No ST elevations or depressions. QTC is 407. Discharge - Discharge Clinical Impression: Chest wall pain Condition: Good Disposition: HOME, SELF-CARE Additional Instructions: You were seen today for chest pain. The exact cause of your pain is unclear. Your patient does however appear to most likely be related to the muscles of your chest wall based on your exam today. Based on your cardiac enzyme testing , chest x-ray, and EKG it does not appear that it is from an immediately life- threatening cause at this time. Although your testing here is normal is critical that you follow-up with your primary care physician for continued evaluation of this chest pain and possible stress testing. I recommended you see your physician within the next 24-48 hours to be evaluated for consideration of a stress test. Please return to emergency department immediately if you have worsening of your chest pain, shortness of breath, vomiting, become unable to exert yourself due to pain or difficulty breathing, you pass out, or have any pain that radiates into your arms, jaw, or back. Please also return if you have any additional symptoms that are concerning to you. Take naproxen 500 mg up to 2 times daily as needed for chest discomfort. Please use this medication for a short of period of time as possible given her history of coronary artery disease. Prescriptions: Naproxen 500 mg PO BID PRN #14 tablet PRN Reason: Referrals: KIKA AGUILAR MD [Primary Care Provider] - Follow up in 3-5 days
[2018-06-10 21:19] VITALS: BP 80/58
== END 2018-06-10 21:31 | disposition home or self-care (01) ==
LOC: ER 13:25
DX: R07.89 Other chest pain (principal); R06.02 Shortness of breath; I50.9 Heart failure, unspecified; I25.10 Atherosclerotic heart disease of native coronary artery without angina pectoris; E78.00 Pure hypercholesterolemia, unspecified; I11.0 Hypertensive heart disease with heart failure; E11.9 Type 2 diabetes mellitus without complications; I25.2 Old myocardial infarction
CPT/HCPCS: 93005; 99285; 96374; 36415; 82553; 82550; 85025; 80053; 84484; 71045; 93010; J3490 ×2; J1885